=== PATIENT | male | born 1975 | race Caucasian/White ===

== ENCOUNTER 2016-07-08 19:53 | Emergency (ER) | payer SELFPAY ==
[2016-07-08] MEDS ORDERED: HYDROCODONE/ACETAMINOPHEN 5-325 MG TABLET PO ONE (21:42)
[2016-07-08] MEDS ORDERED: PREDNISONE 20 MG TABLET PO ONE (21:42)
--- NOTE | 2016-07-08 21:58 | ER Document Report ---
ED General - General Chief Complaint: Low Back Pain Stated Complaint: LEFT LEG/BACK PAIN Mode of Arrival: Ambulatory Information source: Patient TRAVEL OUTSIDE OF THE [place] IN LAST 30 DAYS: No - HPI Patient complains to provider of: left leg pain Notes: Patient arrives with complaints of left leg pain. Patient has a history of sciatica and states that this feels exactly like sciatica he's had in the past. States that for the last 2 weeks the pain has gotten worse. It is worse with movement or walking. He occasionally feels like he has muscle spasms in this area as well. He denies any traumatic injury. He denies blood thinners. He denies fevers. He denies IV drug use. He denies nausea, vomiting, diarrhea. Abdominal pain. No dysuria hematuria. No rash. No chest pain or shortness of breath. States this feels like prior episodes of sciatica is had in the past. He denies any bowel or bladder dysfunction at this time. States that he's been trying meloxicam for last 2 weeks and it does not seem to be improving. He states that he does not want any pain medication he would like some steroids to help decrease inflammation. - Related Data Allergies/Adverse Reactions: No Known Allergies Allergy (Unverified 03/24/14 16:33) Past Medical History - Social History Smoking Status: Unknown if Ever Smoked Family History: Reviewed & Not Pertinent Patient has suicidal ideation: No Patient has homicidal ideation: No Renal/ Medical History: Denies: Hx Peritoneal Dialysis Review of Systems - Review of Systems -: Yes All other systems reviewed and negative Physical Exam - Vital signs Vitals: Temp Pulse Resp BP Pulse Ox 97.8 F 88 18 132/90 H 98 07/08/16 20:56 07/08/16 20:56 07/08/16 20:56 07/08/16 20:56 07/08/16 20:56 - Notes Notes: GENERAL: alert, cooperative, nontoxic, no distress. HEAD: normocephalic, atraumatic EYES: conjunctiva pink without discharge, no external redness or swelling. EARS: no external swelling, no external redness NOSE: atraumatic, no external swelling MOUTH/THROAT: mucous membranes moist and pink, posterior pharynx without erythema, swelling, exudate. No trismus or drooling. NECK: soft, supple, full range of motion, no meningismus. CHEST: no distress, lungs clear and equal throughout. No wheezing, rales, rhonchi. CARDIAC: regular rate and rhythm, no murmur, normal capillary refill, normal pulses. No peripheral edema noted. ABDOMEN: soft, nontender, no pusatile mass. BACK: No tenderness to palpation to the back. He does have some mild tenderness to the left sciatic notch. Positive straight leg raise on the left. EXTREMITIES: full range of motion of all extremities. No redness, no swelling. NEURO: alert and oriented 3, no focal deficits, full range of motion of all extremities. 5 out of 5 flexion and extension of the lower extremities bilaterally. Patellar and Achilles deep tendon reflexes are +2 bilaterally. Normal sensation with no saddle anesthesia. PYSCH: appropriate mood, affect. Patient is cooperative. SKIN: pink, warm, dry, no rash. Course - Re-evaluation Re-evalutation: 07/08/16 21:55 Patient is nontoxic and was stable vitals. The patient arrives with complaints of left leg pain that he believes is due to sciatica. He's had sciatica in the past and states this feels exactly like it. No trauma. He has no sign or risk of cauda equina or epidural abscess or bleed. Patient states he does not want any pain medicine "home with. He was given a dose of [place] and steroids here in the emergency department. He will be discharged home with prednisone. Follow up with his doctor if not better in one week, sooner for increased pain, fever, numbness, tingling, weakness, bowel or bladder dysfunction, or any further concerns. The patient is noted to have elevated blood pressure during today's emergency department visit. The patient was informed of this finding. The patient was instructed that this may be related to pre-hypertension and requires further evaluation with a primary care provider. The patient has no hypertensive symptoms at this time. The patient's emergency department workup and current diagnosis were explained to the patient and or family. Follow-up instructions were provided. Medications if prescribed were discussed. Instructions for when to return to the emergency department including specific worrisome symptoms were discussed with the patient and/or family. - Vital Signs Vital signs: Temp Pulse Resp BP Pulse Ox 97.8 F 88 18 132/90 H 98 07/08/16 20:56 07/08/16 20:56 07/08/16 20:56 07/08/16 20:56 07/08/16 20:56 Discharge - Discharge Clinical Impression: Sciatica Qualifiers: Laterality: left Qualified Code(s): M54.32 - Sciatica, left side Condition: Stable Disposition: HOME, SELF-CARE Instructions: Sciatica ([facility]) Additional Instructions: Take medications as prescribed. Follow-up with your doctor if not better in one week, sooner for increased pain, fever, numbness, tingling, weakness, difficulty controlling her bowels or bladder, or any further concerns. Your blood pressure was elevated during today's visit. Have this rechecked with your doctor. Prescriptions: Prednisone 60 mg PO DAILY #15 tablet Forms: Elevated Blood Pressure
[2016-07-09 09:26] VITALS: BP 131/90
== END 2016-07-08 22:05 | disposition home or self-care (01) ==
LOC: ER 19:53
DX: M54.32 Sciatica, left side (principal); M62.838 Other muscle spasm; R03.0 Elevated blood-pressure reading, without diagnosis of hypertension; Z79.1 Long term (current) use of non-steroidal anti-inflammatories (NSAID)
CPT/HCPCS: 99283; J7512

== ENCOUNTER 2017-05-22 05:13 | Observation (INO) | payer MEDICAID ==
[2017-05-22] MEDS ORDERED: ASPIRIN 81 MG TABLET, CHEWABLE PO ONE (05:16)
--- NOTE | 2017-05-22 05:33 | ER Document Report ---
ED Medical Screen (RME) - General Chief Complaint: Palpitations Stated Complaint: CHEST PAIN Time Seen by Provider: 05/22/17 05:27 Mode of Arrival: Ambulatory Information source: Patient Notes: 42-year-old male history A. fib who is just discharged from [facility] on metoprolol for A. fib presents with complaints of heart racing. Patient denies any fevers or chills notes he was discharged on metoprolol Patient believes his heart is racing at this time however noted to be in A. fib rate under 100 I have greeted and performed a rapid initial assessment of this patient. A comprehensive ED assessment and evaluation of the patient, analysis of test results and completion of the medical decision making process will be conducted by additional ED providers. PHYSICAL EXAMINATION: GENERAL: Well-appearing, well-nourished and in no acute distress. HEAD: Atraumatic, normocephalic. EYES: Pupils equal round extraocular movements intact, conjunctiva are normal. ENT: Nares patent NECK: Normal range of motion LUNGS: No respiratory distress Musculoskeletal: Normal range of motion NEUROLOGICAL: Normal speech, normal gait. PSYCH: Normal mood, normal affect. SKIN: Warm, Dry, normal turgor, no rashes or lesions noted. TRAVEL OUTSIDE OF THE [place] IN LAST 30 DAYS: No - Related Data Allergies/Adverse Reactions: No Known Allergies Allergy (Unverified 03/24/14 16:33) Past Medical History - Social History Frequency of alcohol use: None Drug Abuse: None Renal/ Medical History: Denies: Hx Peritoneal Dialysis Musculoskeltal Medical History: Reports Hx Arthritis Past Surgical History: Reports: Hx Orthopedic Surgery - Immunizations Hx Diphtheria, Pertussis, Tetanus Vaccination: Yes Physical Exam - Vital signs Vitals: Temp Pulse Resp BP Pulse Ox 97.4 F 90 16 146/106 H 99 05/22/17 05:17 05/22/17 05:17 05/22/17 05:17 05/22/17 05:17 05/22/17 05:17 Course - Vital Signs Vital signs: Temp Pulse Resp BP Pulse Ox 97.4 F 90 16 146/106 H 99 05/22/17 05:17 05/22/17 05:17 05/22/17 05:17 05/22/17 05:17 05/22/17 05:17
[2017-05-22] MEDS ORDERED: NORMAL SALINE 1000 ML 1,000 ML IV ONE ×3 (05:45→09:27)
[2017-05-22 05:49] LABS: ABSOLUTE BASOPHILS # (AUTO) 0.1 10^3/uL (0.0-0.2); ABSOLUTE EOSINOPHILS # (AUTO) 0.1 10^3/uL (0.0-0.6); ABSOLUTE LYMPHOCYTES (AUTO) 2.9 10^3/uL (0.5-4.7); ABSOLUTE MONOCYTES (AUTO) 0.8 10^3/uL (0.1-1.4); ABSOLUTE NEUT (AUTO) 5.1 10^3/uL (1.7-8.2); BASOPHILS % (AUTO) 0.7 % (0-2); EOSINOPHILS % (AUTO) 0.9 % (0-6); HEMATOCRIT 49.7 % (37.9-51.0); HEMOGLOBIN 16.8 g/dL (13.5-17.0); LYMPHOCYTES % (AUTO) 32.4 % (13-45); MEAN CORPUSCULAR HEMOGLOBIN 27.7 pg (27.0-33.4); MEAN CORPUSCULAR HGB CONC 33.7 g/dL (32.0-36.0); MEAN CORPUSCULAR VOLUME 82 fl (80-97); MONOCYTES % (AUTO) 9.2 % (3-13); PLATELET COUNT 216 10^3/uL (150-450); RED BLOOD COUNT 6.04 10^6/uL (4.35-5.55); RED CELL DISTRIBUTION WIDTH 13.6 % (11.5-14.0); SEGMENTED NEUTROPHILS % (AUTO) 56.8 % (42-78); TOTAL CELLS COUNTED % (AUTO) 100 %; WHITE BLOOD COUNT 8.9 10^3/uL (4.0-10.5)
--- NOTE | 2017-05-22 05:50 | RADIOLOGY REPORT (SQ) ---
EXAM DESCRIPTION: CHEST SINGLE VIEW CLINICAL HISTORY: chest pain COMPARISON: None. FINDINGS: Single frontal view of the chest. The cardiomediastinal silhouette has normal size and contour. No consolidation, pneumothorax, or pleural effusion. No displaced rib fractures identified. Upper abdominal soft tissues are unremarkable. Leads overlie the chest. IMPRESSION: 1. No acute pulmonary process identified.
--- NOTE | 2017-05-22 06:14 | ER Document Report ---
ED Cardiac - General Chief Complaint: Palpitations Stated Complaint: CHEST PAIN Time Seen by Provider: 05/22/17 05:27 Mode of Arrival: Ambulatory Notes: The patient is a 42-year-old male, past medical history A. fib, presents with feeling like his heart is racing. He was seen at [facility] yesterday for A. fib with RVR and was sent home. He was placed on metoprolol 50 mg twice daily and a baby aspirin about a month ago for new onset A. fib. His Viscera Washer is Dr. Jairo Strickland at [facility]. Patient says that when he walks, he begins to have increasing shortness of breath, near syncope and feels his heart racing. This resolves when he is at rest. He denies chest pain, shortness of breath, nausea, vomiting, syncope, fevers, back pain, abdominal pain or leg swelling. TRAVEL OUTSIDE OF THE [place] IN LAST 30 DAYS: No - Related Data Allergies/Adverse Reactions: No Known Allergies Allergy (Unverified 03/24/14 16:33) Past Medical History - General Information source: Patient - Social History Smoking Status: Current Every Day Smoker Frequency of alcohol use: None Drug Abuse: None Family History: Reviewed & Not Pertinent Patient has suicidal ideation: No Patient has homicidal ideation: No - Past Medical History Cardiac Medical History: Reports: Hx Atrial Fibrillation Renal/ Medical History: Denies: Hx Peritoneal Dialysis Musculoskeltal Medical History: Reports Hx Arthritis Past Surgical History: Reports: Hx Orthopedic Surgery - Immunizations Hx Diphtheria, Pertussis, Tetanus Vaccination: Yes Review of Systems - Review of Systems Notes: REVIEW OF SYSTEMS: CONSTITUTIONAL: -fevers, -chills EENT: -eye pain, -difficulty swallowing, -nasal congestion CARDIOVASCULAR: -chest pain, -syncope, +palpitations RESPIRATORY: -cough, -SOB GASTROINTESTINAL: -abdominal pain, -nausea, -vomiting, -diarrhea GENITOURINARY: -dysuria, -hematuria MUSCULOSKELETAL: -back pain, -neck pain SKIN: -rash or skin lesions. HEMATOLOGIC: -easy bruising or bleeding. LYMPHATIC: -swollen, enlarged glands. NEUROLOGICAL: -altered mental status or loss of consciousness, -headache, - neurologic symptoms PSYCHIATRIC: -anxiety, -depression. ALL OTHER SYSTEMS REVIEWED AND NEGATIVE. Physical Exam - Vital signs Vitals: Temp Pulse Resp BP Pulse Ox 97.4 F 90 16 146/106 H 99 05/22/17 05:17 05/22/17 05:17 05/22/17 05:17 05/22/17 05:17 05/22/17 05:17 - Notes Notes: PHYSICAL EXAMINATION: GENERAL: Well-appearing, well-nourished and in no acute distress. HEAD: Atraumatic, normocephalic. EYES: Pupils equal round and reactive to light, extraocular movements intact, sclera anicteric, conjunctiva are normal. ENT: nares patent, oropharynx clear without exudates. Moist mucous membranes. NECK: Normal range of motion, supple without lymphadenopathy LUNGS: Breath sounds clear to auscultation bilaterally and equal. No wheezes rales or rhonchi. HEART: Irregular rhythm, rate-controlled ABDOMEN: Soft, nontender, normoactive bowel sounds. No guarding, no rebound. No masses appreciated. EXTREMITIES: Normal range of motion, no pitting or edema. No cyanosis. NEUROLOGICAL: Cranial nerves grossly intact. Normal speech, normal gait. Normal sensory and motor exams. PSYCH: Normal mood, normal affect. SKIN: Warm, Dry, normal turgor, no rashes or lesions noted. Course - Re-evaluation Re-evalutation: Patient arrives in his known A. fib with HR in low 100's. He was given a dose of IV metoprolol and his heart rate improved to the 80s. When patient was ambulated, his heart rate went back up to the 140s and he began to have his near syncopal episode when he felt short of breath. D-dimer added to assess for PE. 05/22/17 08:15 D-dimer negative. Will low-moderate suspicion for PE, this rules- out a PE. Placed call to his Viscera Washer, Dr. Jairo Simon and awaiting callback to discuss further recommendations. 05/22/17 09:24 Second troponin is negative. After 2L IVF, pt reambulated and his HR increases to 120s A. fib RVR and feels like he is ready to pass out again. His heart rate will get back down to the 80s after he sits down. Spoke to Dr. Burton (environmental adviser) and he suggested additional fluids and he will consult on patient. Patient requires admission for further evaluation treatment due to the near syncopal episodes and A. fib RVR symptoms with any exertion. His PCP is Noelle Yip NP. 05/22/17 09:[address] Kidd (Hospitalist) and will admit patient as Inpatient to [facility] for further evaluation and treatment. 05/22/17 10:13 Spoke to patient's Viscera Washer, Dr. Jairo Simon. He suggests that patient's metoprolol may be increased. - Vital Signs Vital signs: Temp Pulse Resp BP Pulse Ox 97.4 F 90 14 116/95 H 98 05/22/17 05:17 05/22/17 05:17 05/22/17 08:22 05/22/17 08:22 05/22/17 08:22 - Laboratory Result Diagrams: 05/22/17 05:35 05/22/17 05:35 Laboratory results interpreted by me: 05/22/17 05/22/17 05:35 05:35 RBC 6.04 H Chloride 108 H Creatine Kinase 220 H - Diagnostic Test Radiology reviewed: Image reviewed, Reports reviewed Radiology results interpreted by me: CXR: NAD - EKG Interpretation by Me Rate: Normal Rhythm: A.Fib When compared to previous EKG there are: No significant change Discharge - Discharge Clinical Impression: Atrial fibrillation with rapid ventricular response, Near syncope Condition: Stable Disposition: ADMITTED INPATIENT Admitting Provider: Jumanaist Sam Kidd Unit Admitted: Telemetry Additional Instructions: Atrial Fibrillation Atrial fibrillation is an abnormal heart rhythm, caused by irregular electrical circuits in the upper heart chamber. It can be caused by heart valve disease, hardening of the arteries, or metabolic problems such as thyroid disease, or may occur without a clear cause. Atrial fibrillation may occur only occasionally, or may be chronic. Atrial fibrillation often results in a very fast heart rate, with palpitations, lightheadedness, and shortness of breath. Treatment is to slow the abnormally fast rate, and to convert the rhythm back to normal, if possible. Many patients stay in atrial fibrillation for years without symptoms or complications. Your doctor will decide whether you can be converted back to a normal heart rhythm. Contact the doctor or emergency medical system at once if you develop chest pain, shortness of breath, or severe lightheadedness, or if you develop any disturbance of consciousness, problems with speech, or localized weakness. Forms: Elevated Blood Pressure Referrals: NOELLE YIP NP [Primary Care Provider] - Follow up as needed
[2017-05-22 06:16] LABS: ALANINE AMINOTRANSFERASE 32 U/L (21-72); ALBUMIN 4.3 g/dL (3.5-5.0); ALKALINE PHOSPHATASE 64 U/L (38-126); ANION GAP 11 (5-19); ASPARTATE AMINO TRANSFERASE 22 U/L (17-59); BILIRUBIN,DIRECT 0.2 mg/dL (0.0-0.4); BILIRUBIN,TOTAL 0.4 mg/dL (0.2-1.3); BLOOD UREA NITROGEN 11 mg/dL (7-20); CALCIUM 9.6 mg/dL (8.4-10.2); CARBON DIOXIDE 24 mmol/L (22-30); CHLORIDE 108 mmol/L (98-107); CREATINE KINASE 220 U/L (55-170); GLUCOSE 105 mg/dL (75-110); POTASSIUM 4.5 mmol/L (3.6-5.0); SODIUM 143.2 mmol/L (137-145); TOTAL PROTEIN 6.5 g/dL (6.3-8.2)
[2017-05-22 06:23] LABS: CREATINE KINASE MB 1.59 ng/mL (<4.55)
[2017-05-22] MEDS ORDERED: METOPROLOL TARTRATE PF/INJ 5 MG/5 ML SDV IV ONE (06:23)
[2017-05-22 06:32] LABS: TROPONIN I < 0.012 ng/mL
--- NOTE | 2017-05-22 07:05 | EKG REPORT ---
SEVERITY:- ABNORMAL ECG - ATRIAL FIBRILLATION, V-RATE 68-106 LEFT POSTERIOR FASCICULAR BLOCK : Confirmed by: Adonis Rousseau MD 22-May-2017 07:04:36
[2017-05-22] MEDS ORDERED: METOPROLOL TARTRATE 50 MG TABLET PO ONE ×2 (09:56→12:00)
[2017-05-22] MEDS ORDERED: ACETAMINOPHEN 325 MG TABLET PO PRN (11:02)
--- NOTE | 2017-05-22 11:02 | PDOC H&P ---
History of Present Illness Admission Date/PCP: CARLOS ALBERTO VILLARREAL NP Patient complains of: Recurrent atrial fibrillation. History of Present Illness: ENEDINA GRAY is a 42 year old male who has a known history of atrial fibrillation. He states that this is the fourth episode of atrial fibrillation that he has had in 3 years. He is normally followed by a radiologic technology program director in [place] who is part of the [facility] group. Yesterday at 9:30 PM the patient was lying in his bed watching television. He felt that his heart rate became irregular and fast. He went to the emergency department in [place]. He was given intravenous medication and discharged. He was still in atrial fibrillation. Once he went home his heart rate again was fast. He does have a blood pressure machine at home. His blood pressure was 128/88 and his pulse was 134-144. He feels tired. He describes this as feeling that he has muscle fatigue as if he has been working all day. Also, he has some shortness of breath with a pleuritic component to it. Last night he felt nauseated and clammy with hot and cold temperature changes. That has not recurred overnight. Otherwise, his review of systems is negative. The patient was given 5 mg of IV Lopressor in our emergency department and also took 50 mg of Lopressor orally. Past Medical History Cardiac Medical History: Reports: Atrial Fibrillation Neurological Medical History: Reports: Migraine Musculoskeltal Medical History: Reports: Arthritis Past Surgical History Past Surgical History: Reports: Orthopedic Surgery Social History Smoking Status: Current Every Day Smoker Frequency of Alcohol Use: Occasional Hx Recreational Drug Use: No Drugs: None Hx Prescription Drug Abuse: No - Advance Directive Resuscitation Status: Full Code Surrogate healthcare decision maker:: : Sabine Gray. Her phone number is [phone]. Family History Family History: Reviewed & Not Pertinent Parental Family History Reviewed: Yes - Both parents have diabetes Children Family History Reviewed: Yes Sibling(s) Family History Reviewed.: Yes Medication/Allergy Home Medications: Bupropion HCl [Wellbutrin Xl 150 mg 24hr Tablet] 150 mg PO BID 05/22/17 Metoprolol Tartrate [Lopressor 50 mg Tablet] 50 mg PO Q12 05/22/17 Sumatriptan Succinate [Imitrex 50 mg Tablet] 50 mg PO DAILYP PRN 05/22/17 Allergies/Adverse Reactions: No Known Allergies Allergy (Unverified 03/24/14 16:33) Review of Systems Constitutional: ABSENT: as per HPI, anorexia, chills, fatigue, fever(s), headache(s), night sweats, weakness, weight gain, weight loss, other Eyes: ABSENT: as per HPI, visual disturbances, other Ears: ABSENT: as per HPI, hearing changes, other Nose, Mouth, and Throat: ABSENT: as per HPI, headache(s), mouth pain, sore throat, vertigo, other Breasts: ABSENT: as per HPI, other Cardiovascular: PRESENT: as per HPI Respiratory: PRESENT: as per HPI Gastrointestinal: PRESENT: nausea Genitourinary: ABSENT: as per HPI, difficulty urinating, dysuria, hematuria, nocturia, other Musculoskeletal: ABSENT: as per HPI, back pain, deformity, joint swelling, muscle weakness, other Integumentary: ABSENT: as per HPI, diaphoresis, erythema, lesions, pruritus, rash, wounds, other Neurological: ABSENT: as per HPI, abnormal gait, abnormal movements, abnormal speech, confusion, convulsions, dizziness, focal weakness, frequent falls, lack of coordination, memory loss, numbness, paresthesias, restless legs, syncope, tingling, tremor(s), vertigo, weakness, other Psychiatric: ABSENT: as per HPI, anxiety, depression, hallucinations, homidical ideation, suicidal ideation, other Endocrine: ABSENT: as per HPI, cold intolerance, flushing, heat intolerance, menstrual abnormalities, polydipsia, polyphagia, polyuria, other Hematologic/Lymphatic: ABSENT: as per HPI, easy bleeding, easy bruising, lymphadenopathy, other Allergic/Immunologic: ABSENT: as per HPI, seasonal rhinorrhea, other Physical Exam Vital Signs: Temp Pulse Resp BP Pulse Ox 97.4 F 90 15 106/69 99 05/22/17 05:17 05/22/17 05:17 05/22/17 10:00 05/22/17 09:16 05/22/17 10:00 Intake & Output 05/21/17 05/22/17 05/23/17 06:59 06:59 06:59 Weight 114.1 kg Additional comments: The patient appears to be a very healthy middle-aged white male. His cognition and mentation are normal. Cranial nerves II through XII are intact. His facial appearance is unremarkable. His oropharynx demonstrates good hygiene. His neck is supple. He does not have any JVD. Trachea is midline. Patient's lungs are clear to auscultation bilaterally. His cardiac exam demonstrates an irregularly irregular rhythm. He does not, however, have murmurs, gallops or rubs. The abdomen is soft and flat. Bowel sounds are present. He does not have guarding or rebound noted and there are no hernias or masses present. The lower extremities are warm to touch without edema. The skin is warm, dry and intact. The patient does have a slight abrasion on the right forearm. Otherwise, the skin does not demonstrate any acute skin lesions or rashes. Results Laboratory Results: 05/22/17 05:35 05/22/17 05:35 05/22/17 05/22/17 05:35 05:35 WBC 8.9 RBC 6.04 H Hgb 16.8 Hct 49.7 MCV 82 MCH 27.7 MCHC 33.7 RDW 13.6 Plt Count 216 Seg Neutrophils % 56.8 Lymphocytes % 32.4 Monocytes % 9.2 Eosinophils % 0.9 Basophils % 0.7 Absolute Neutrophils 5.1 Absolute Lymphocytes 2.9 Absolute Monocytes 0.8 Absolute Eosinophils 0.1 Absolute Basophils 0.1 Sodium 143.2 Potassium 4.5 Chloride 108 H Carbon Dioxide 24 Anion Gap 11 BUN 11 Creatinine 0.93 Est GFR ( Amer) > 60 Est GFR (Non-Af Amer) > 60 Glucose 105 Calcium 9.6 Total Bilirubin 0.4 AST 22 ALT 32 Alkaline Phosphatase 64 Total Protein 6.5 Albumin 4.3 05/22/17 05/22/17 05/22/17 05:35 05:35 08:37 Creatine Kinase 220 H CK-MB (CK-2) 1.59 Troponin I < 0.012 < 0.012 Impressions: Chest X-Ray 05/22/17 05:16 IMPRESSION: 1. No acute pulmonary process identified. Assessment & Plan - Diagnosis (1) Atrial fibrillation with rapid ventricular response Is this a current diagnosis for this admission?: Yes Plan: Recent will be admitted to [facility] on observation status. I will increase his dose of Lopressor from 50 mg twice daily to 75 mg twice daily. I will order an echocardiogram. I will order thyroid function studies. I will not order a CT angiogram as the d-dimer is negative and the patient does not have any risk factors or clinical signs or symptoms of venous thromboembolic disease. I will also check a lipid panel. Did inform the patient that he should consider long- term anticoagulation. We will continue cardiac rule outs. (2) Hypertension Is this a current diagnosis for this admission?: Yes Plan: As above, I will increase the dose of Lopressor. (3) Elevated creatine kinase Is this a current diagnosis for this admission?: Yes Plan: Possibly from dehydration. (4) Tobacco abuse Is this a current diagnosis for this admission?: Yes Plan: The patient was counseled on smoking cessation. Wellbutrin will be continued. - Time Time Spent: 30 to 50 Minutes - Inpatient Certification Medical Necessity: Failure to Improve With Outpatient Therapy, Need For Continuous Telemetry Monitoring, Risk of Complication if Not Cared For in Hospital
[2017-05-22 11:53] LABS: FREE T4 (FREE THYROXINE) 1.25 ng/dL (0.78-2.19)
[2017-05-22 12:07] LABS: THYROID STIMULATING HORMONE 2.76 uIU/mL (0.47-4.68)
[2017-05-22 12:09] LABS: PROTHROMBIN TIME 12.8 SEC (11.4-15.4)
[2017-05-22 12:10] LABS: PARTIAL THROMBOPLASTIN TIME 32.6 SEC (23.5-35.8)
[2017-05-22] MEDS: 1/2 NORMAL SALINE 1,000 ML IV PRN ×2 (15:15→20:16)
[2017-05-22] MEDS ORDERED: (PENDING PHARMACY ID) (Bupropion Hcl [Wellbutrin Xl 150 Mg 24hr Tablet] 150 MG) PO SCH (18:00)
--- NOTE | 2017-05-22 20:01 | PDOC CONSULTATION ---
Consultation Consult Date: 05/22/17 Attending physician:: NATALIE HOGUE Consult reason:: Atrial fibrillation History of Present Illness Admission Date/PCP: 05/22/17 11:05 CARLOS ALBERTO VILLARREAL NP Patient complains of: Tachycardia and dizziness History of Present Illness: ENEDINA GRAY is a 42 year old male who has a known history of atrial fibrillation. He states that this is the fourth episode of atrial fibrillation that he has had in 3 years. He is normally followed by a independent beauty consultant in [place] who is part of the [facility] group. Yesterday at 9:30 PM the patient was lying in his bed watching television. He felt that his heart rate became irregular and fast. He went to the emergency department in [place]. He was given intravenous medication and discharged. He was still in atrial fibrillation. Once he went home his heart rate again was fast. He does have a blood pressure machine at home. His blood pressure was 128/88 and his pulse was 134-144. He feels tired. He describes this as feeling that he has muscle fatigue as if he has been working all day. Also, he has some shortness of breath with a pleuritic component to it. Last night he felt nauseated and clammy with hot and cold temperature changes. That has not recurred overnight. Otherwise, his review of systems is negative. The patient was given 5 mg of IV Lopressor in our emergency department and also took 50 mg of Lopressor orally. This history was reviewed and confirmed. He gives prior history of cardioversion with conversion to sinus rhythm but apparently did not hold much long. Patient has also been evaluated in [place]. Patient claims having had a stress test about 2 months ago at [place] which he claims was relatively unremarkable. Past Medical History Cardiac Medical History: Reports: Atrial Fibrillation Neurological Medical History: Reports: Migraine Musculoskeltal Medical History: Reports: Arthritis Psychiatric Medical History: Denies: Depression Past Surgical History Past Surgical History: Reports: Orthopedic Surgery Social History Information Source: Patient Smoking Status: Current Every Day Smoker Frequency of Alcohol Use: Occasional Hx Recreational Drug Use: No Drugs: None Hx Prescription Drug Abuse: No - Advance Directive Resuscitation Status: Full Code Family History Family History: Hypertension Parental Family History Reviewed: Yes Children Family History Reviewed: Yes Sibling(s) Family History Reviewed.: Yes Medication/Allergy Home Medications: Bupropion HCl [Wellbutrin Xl 150 mg 24hr Tablet] 150 mg PO BID 05/22/17 Metoprolol Tartrate [Lopressor 50 mg Tablet] 50 mg PO Q12 05/22/17 Sumatriptan Succinate [Imitrex 50 mg Tablet] 50 mg PO DAILYP PRN 05/22/17 Allergies/Adverse Reactions: No Known Allergies Allergy (Unverified 03/24/14 16:33) Review of Systems Review of Systems: Please see history of present illness and past medical history as wall. Constitutional: No fever or chills reported. Head : No recent chronic headaches, recent head injury. Eyes: No recent eye pain, diplopia, redness, discharge, acute visual changes. Ears: No recent chronic ear pain, acute hearing loss, ear discharge. Oral cavity: No recent ulcerations, bleeding, oral cavity discomfort. Neck: No recent acute neck pain reported. Hematologic: No recent easy bruising or bleeding or hematologic malignancy reported. Lymphatic: No recent lymphatic malignancy, chronic lymphadenopathy reported yet Cardiovascular system review: See history of present illness. Respiratory system review: No recent chronic cough, hemoptysis, blood clots in the lungs reported. Mild Shortness of breath on exertion Gastrointestinal system review: Negative for any recent acute or chronic abdominal pain, hematemesis, melena, recent change in bowel habits. Genitourinary system review: No recent acute or chronic hematuria, flank pain, UTI etc. reported. Skin system review: Negative for any recent abnormal bruising, no rash, no pruritus reported. Neurologic: No prior history of strokes, mini strokes, seizure disorder. Psychologic: No history of major psychosis or major depression reported. Musculoskeletal: Minor aches and pains reported. No acute joint swelling reported. Endocrine: No recent polyuria, polydipsia, recent heat or cold intolerance. Physical Exam Vital Signs: Temp Pulse Resp BP Pulse Ox 97.4 F 73 12 104/61 99 05/22/17 05:17 05/22/17 18:46 05/22/17 18:01 05/22/17 17:01 05/22/17 18:01 Exam: GENERAL: well-nourished and in no acute distress. Alert and oriented x3 HEAD: Atraumatic, normocephalic. EYES: Pupils equal round and reactive to light, extraocular movements intact, sclera anicteric, conjunctiva are normal. ENT: TMs normal, nares patent, oropharynx clear without exudates. Moist mucous membranes. No oral ulcerations or bleeding gums noted NECK: supple without lymphadenopathy. Trachea is central. No cervical or axillary lymphadenopathy noted. Carotids are 2+, JVD WNL LUNGS: Respiration seems nonlabored, no significant accessory muscle action noted. Breath sounds clear to auscultation bilaterally and equal noted. No wheezes rales or rhonchi noted. No significant dullness noted on percussion. CHEST: Palpation of the chest wall shows no significant chest wall tenderness. No other significant abnormalities noted. HEART: [place] [employer], No PSH, 1/6 LUIS ARMANDO aortic area, 1/6 johns systolic murmur mitral area, no rubs, no gallops. ABDOMEN: Soft, no significant tenderness appreciated, normoactive bowel sounds. No guarding, no rebound. No rigidity noted . No masses appreciated. EXTREMITIES: Pedal pulses are 1-2+, no calf tenderness noted. No clubbing or cyanosis.trace to 1+ pedal edema noted NEUROLOGICAL: Focused neurological exam showed no significant neurologic deficit. Normal speech, no focal weakness appreciated. PSYCH: Normal mood, normal affect. Judgment and insight within normal limits. SKIN: No significant ecchymosis, skin is noted to be warm. MUSCULOSKELETAL EXAM: No significant acute joint swelling noted. Results Laboratory Results: 05/22/17 05/22/17 11:48 17:21 Troponin I < 0.012 < 0.012 EKG Comments: Atrial fibrillation with controlled ventricular response. No acute ST-T wave changes noted. Impressions: Chest X-Ray 05/22/17 05:16 IMPRESSION: 1. No acute pulmonary process identified. Assessment & Plan - Diagnosis (1) Atrial fibrillation with rapid ventricular response Is this a current diagnosis for this admission?: Yes (2) Hypertension Qualifiers: Hypertension type: essential hypertension Qualified Code(s): I10 - Essential (primary) hypertension Is this a current diagnosis for this admission?: Yes (3) Near syncope Is this a current diagnosis for this admission?: Yes (4) Tobacco abuse Is this a current diagnosis for this admission?: Yes (5) Sleep apnea syndrome Qualifiers: Sleep apnea type: unspecified type Qualified Code(s): G47.30 - Sleep apnea , unspecified Is this a current diagnosis for this admission?: Yes - Notes Notes: Atrial fibrillation with rapid ventricular response: At this point, continue with IV Lopressor as needed. Have placed patient on metoprolol succinate 100 mg p.o. twice daily. This may result in a smoother control of his heart rate being long-acting. Near syncope and dizziness: Most likely related to relative volume depletion and atrial fibrillation with rapid ventricular response. Agree with IV fluids. Attempting better control of heart rate with medication changes. Tobacco abuse: Patient has been advised to quit smoking. Hypertension: Blood pressure goal should be 135/85 or less in this young gentleman. Beta-blockers and HALIE inhibitor/ARB are preferred. Currently blood pressure well controlled. Sleep apnea syndrome: Discussed that proper treatment of sleep apnea may reduce recurrence risk of atrial fibrillation along with other multiple benefits. Patient currently being followed by another physician. - Time Time Spent: 30 to 50 Minutes - CODE STATUS was discussed, patient remains full code. Surrogate decision-maker patient's . Multiple medical problems were addressed. More than 50% of the time spent coordinating care, discussing management plans with involved caregivers. Management plans discussed with involved personnels. Medical decision making was of moderate to high complexity , patient's has multiple comorbidities. Medications reviewed and adjusted accordingly: Yes
[2017-05-22] MEDS: BUPROPION HCL 75 MG TABLET PO SCH ×2 (20:17→23:09)
[2017-05-22] MEDS: METOPROLOL SUCCINATE 50 MG TAB.SR.24H PO SCH (21:26)
[2017-05-22] MEDS ORDERED: METOPROLOL SUCCINATE 25 MG TAB.SR.24H PO SCH (22:00)
[2017-05-22] MEDS ORDERED: METOPROLOL TARTRATE 50 MG TABLET PO SCH (22:00)
[2017-05-22] MEDS ORDERED: METOPROLOL TARTRATE 100 MG TABLET PO SCH (22:00)
[2017-05-23] MEDS: BUPROPION HCL 75 MG TABLET PO SCH ×2 (05:30→11:10)
[2017-05-23] MEDS: 1/2 NORMAL SALINE 1,000 ML IV PRN (05:32)
[2017-05-23 06:50] LABS: CHOLESTEROL 175.29 mg/dL (0-200); TRIGLYCERIDES 164 mg/dL (<150)
[2017-05-23 07:01] LABS: DIRECT LDL 136 mg/dL (<100)
[2017-05-23 07:06] LABS: VLDL CHOLESTEROL 32.8 mg/dL (10-31)
--- NOTE | 2017-05-23 07:30 | EKG REPORT ---
SEVERITY:- ABNORMAL ECG - ATRIAL FIBRILLATION, V-RATE 68-115 INCOMPLETE RIGHT BUNDLE BRANCH BLOCK : Confirmed by: Adonis Rousseau MD 23-May-2017 07:29:28
[2017-05-23] MEDS: METOPROLOL SUCCINATE 50 MG TAB.SR.24H PO SCH (10:28)
--- NOTE | 2017-05-23 12:29 | XCELERA REPORT ---
[address] [address] Transthoracic Echocardiogram Report Name: ENEDINA GRAY Age: 42 yrs Gender: Male : 1975 Patient Status: Inpatient Patient Location: [address] [place] [address] Study Date: 05/23/2017 09:51 AM Height: 75 in Weight: 251 lb BSA: 2.4 m2 Procedure: A complete two-dimensional transthoracic echocardiogram was performed (2D, M-mode, spectral and color flow Doppler). The study was technically adequate with some images being suboptimal in quality. Reason For Study: Afib Ordering Physician: NATALIE HOGUE Performed By: Zenia Valentine Interpretation Summary Left ventricular systolic function is borderline reduced. The Ejection Fraction estimate is 50-55% There is mild concentric left ventricular hypertrophy. The left ventricle is grossly normal size. Wall motion cannot be accurately commented on, but no definite regional wall motion abnormalities noted. LV diastolic function could not be adequately assessed due to atrial fibrilation. The right ventricular systolic function is normal. The left atrium is mildly dilated. The right atrium is normal in size There is a trace amount of mitral regurgitation There is no mitral valve stenosis. No aortic regurgitation is present. There is no aortic valve stenosis There is no tricuspid stenosis. No tricuspid regurgitation. The aortic root is not well visualized. The inferior vena cava was not well visualized Minimal pericardial effusion. MMode/2D Measurements & Calculations RVDd: 3.5 cm LVIDd: 5.1 cmFS: 21.7 % Ao root diam: 4.0 cm IVSd: 1.2 cm LVIDs: 4.0 cmEDV(Teich): 124.6 ml LVPWd: 1.2 cmESV(Teich): 70.1 ml Ao root area: 12.5 cm2 EF(Teich): 43.7 % LA dimension: 3.8 cm LVOT diam: 2.5 cm LVOT area: 4.8 cm2 Doppler Measurements & Calculations MV E max crystal: MV P1/2t max crystal: Ao V2 max: LV V1 max P.0 cm/sec 115.5 cm/sec 103.7 cm/sec 2.7 mmHg MV P1/2t: 51.4 msec Ao max PG: LV V1 max: MVA(P1/2t): 4.3 cm2 4.3 mmHg 81.8 cm/sec MV dec slope: EMILI(V,D): 3.7 cm2 658.0 cm/sec2 PA V2 max: 61.7 cm/sec PA max P.5 mmHg Left Ventricle The left ventricle is grossly normal size. There is mild concentric left ventricular hypertrophy. Left ventricular systolic function is borderline reduced. The Ejection Fraction estimate is 50-55%. LV diastolic function could not be adequately assessed due to atrial fibrilation. Wall motion cannot be accurately commented on, but no definite regional wall motion abnormalities noted. Right Ventricle The right ventricle is grossly normal size. There is normal right ventricular wall thickness. The right ventricular systolic function is normal. Atria The right atrium is normal in size. The left atrium is mildly dilated. Interarterial septum not well visualized and not well dopplered. Cannot comment on ASD/PFO presence. Mitral Valve The mitral valve is grossly normal. There is no mitral valve stenosis. There is a trace amount of mitral regurgitation. Aortic Valve The aortic valve is not well visualized secondary to technical limitations. There is no aortic valve stenosis. No aortic regurgitation is present. Tricuspid Valve The tricuspid valve is not well visualized, but is grossly normal. There is no tricuspid stenosis. No tricuspid regurgitation. Pulmonic Valve The pulmonic valve is not well visualized. Great Vessels The aortic root is not well visualized. The inferior vena cava was not well visualized. Effusions Minimal pericardial effusion. : NATALIE HOGUE > Lanie Burton
[2017-05-23 13:50] VITALS: BP 117/70
--- NOTE | 2017-05-23 15:32 | PDOC DISCHARGE SUMMARY ---
General - Admit/Disc Date/PCP Admission Date/Primary Care Provider: 05/22/17 11:05 CARLOS ALBERTO VILLARREAL NP Discharge Date: 05/23/17 - Discharge Diagnosis (1) Atrial fibrillation with rapid ventricular response Is this a current diagnosis for this admission?: Yes (2) Elevated creatine kinase Is this a current diagnosis for this admission?: Yes (3) Hypertension Is this a current diagnosis for this admission?: Yes (4) Sleep apnea syndrome Is this a current diagnosis for this admission?: Yes (5) Tobacco abuse Is this a current diagnosis for this admission?: Yes - Additional Information Resuscitation Status: Full Code Discharge Diet: Cardiac Discharge Activity: Activity As Tolerated, Balance Activity w/Rest, Other Prescriptions: Metoprolol Succinate [Toprol Xl 50 mg Tab.sr] 100 mg PO Q12 #60 tab.sr.24h Home Medications: Bupropion HCl [Wellbutrin Xl 150 mg 24hr Tablet] 150 mg PO BID 05/22/17 Sumatriptan Succinate [Imitrex 50 mg Tablet] 50 mg PO DAILYP PRN 05/22/17 Acetaminophen [Tylenol 325 mg Tablet] 650 mg PO Q4HP PRN tablet 05/23/17 Metoprolol Succinate [Toprol Xl 50 mg Tab.sr] 100 mg PO Q12 #60 tab.sr.24h 05/23 History of Present Illness History of Present Illness: Per H&P by Dr. De La O: ENEDINA GRAY is a 42 year old male who has a known history of atrial fibrillation. He states that this is the fourth episode of atrial fibrillation that he has had in 3 years. He is normally followed by a saw boss in [place] who is part of the [facility] group. Yesterday at 9:30 PM the patient was lying in his bed watching television. He felt that his heart rate became irregular and fast. He went to the emergency department in [place]. He was given intravenous medication and discharged. He was still in atrial fibrillation. Once he went home his heart rate again was fast. He does have a blood pressure machine at home. His blood pressure was 128/88 and his pulse was 134-144. He feels tired. He describes this as feeling that he has muscle fatigue as if he has been working all day. Also, he has some shortness of breath with a pleuritic component to it. Last night he felt nauseated and clammy with hot and cold temperature changes. That has not recurred overnight. Otherwise, his review of systems is negative. The patient was given 5 mg of IV Lopressor in our emergency department and also took 50 mg of Lopressor orally. Hospital Course Hospital Course: The patient was admitted on 05/22/17 with atrial fibrillation with RVR. He was admitted to the [facility] on continuous cardiac telemetry for observational status. The patient's serial troponins were negative. Thyroid panel is appropriate. Lipid panel demonstrated LDL of 136, HDL 27, triglycerides of 164. I did discuss with the patient a low-fat, high-fiber diet and that statin therapy may be indicated in the near future. At this time, the patient's [place] 10- year risk score is 6%; I advised the patient to discuss statin therapy with his primary care provider or saw boss. Echocardiogram demonstrated a LVEF of 50-55%, mild concentric left ventricular hypertrophy, and trace mitral regurgitation. Cardiology was consulted; they made adjustments to the patient's medications. He was transitioned to metoprolol succinate 100 mg twice daily for long-acting coverage. They did not advised chronic anticoagulation at this time; deferring to the patient's outpatient saw boss for evaluation and discussion of potential cardiac ablation. At time of discharge, the patient is in stable condition. He is discharged home with self-care. He has appointments with his primary care provider and saw boss scheduled for next week. He is provided a prescription for metoprolol succinate 100 mg twice daily and advised to continue a full strength daily aspirin. Physical Exam Vital Signs: Temp Pulse Resp BP Pulse Ox 97.9 F 106 H 18 119/85 94 05/23/17 13:33 05/23/17 13:33 05/23/17 13:33 05/23/17 13:33 05/23/17 13:33 Intake & Output 05/22/17 05/23/17 05/24/17 06:59 06:59 06:59 Intake Total 1519 601 Balance 1519 601 Weight 112 kg General appearance: PRESENT: no acute distress, well-developed, well-nourished, other - Overweight Head exam: PRESENT: atraumatic, normocephalic Eye exam: PRESENT: conjunctiva pink, EOMI, PERRLA. ABSENT: scleral icterus Ear exam: PRESENT: normal external ear exam Mouth exam: PRESENT: moist, tongue midline Neck exam: ABSENT: carotid bruit, JVD, lymphadenopathy, thyromegaly Respiratory exam: PRESENT: clear to auscultation reba, symmetrical, unlabored. ABSENT: rales, rhonchi, wheezes Cardiovascular exam: PRESENT: irregular rhythm, +S1, +S2. ABSENT: diastolic murmur, rubs, systolic murmur, tachycardia Pulses: PRESENT: normal dorsalis pedis pul Vascular exam: PRESENT: normal capillary refill GI/Abdominal exam: PRESENT: normal bowel sounds, soft. ABSENT: distended, guarding, mass, organolmegaly, rebound, tenderness Rectal exam: PRESENT: deferred Extremities exam: PRESENT: full ROM. ABSENT: calf tenderness, clubbing, pedal edema Neurological exam: PRESENT: alert, awake, oriented to person, oriented to place , oriented to time, oriented to situation, CN II-XII grossly intact. ABSENT: motor sensory deficit Psychiatric exam: PRESENT: appropriate affect, normal mood. ABSENT: homicidal ideation, suicidal ideation Skin exam: PRESENT: dry, intact, warm. ABSENT: cyanosis, rash Results Laboratory Results: 05/23/17 06:07 Triglycerides 164 H Cholesterol 175.29 LDL Cholesterol Direct 136 H VLDL Cholesterol 32.8 H HDL Cholesterol 27 L 05/22/17 05/22/17 05/22/17 11:48 17:21 23:17 Troponin I < 0.012 < 0.012 < 0.012 Impressions: Chest X-Ray 05/22/17 05:16 IMPRESSION: 1. No acute pulmonary process identified. Qualifiers - * PATEINT BEING DISCHARGED WITH ANY OF THE FOLLOWING DIAGNOSIS?: No
--- NOTE | 2017-05-24 10:17 | PDOC PROGRESS REPORT ---
Subjective Progress Note for:: 05/23/17 Subjective:: Patient seems to be doing better with significant improvement. Dizziness has improved. Sense of palpitations have improved. Pt is denying any chest arm or neck discomfort. Patient denying any PND, orthopnea. Patient denied any sustained palpitations, dizziness, syncope, near syncope. Patient denying any fever chills. Patient denying any other significant discomfort. Patient is maintaining chronic atrial fibrillation Review of systems: Rest review of systems negative. Medications: Medications have been reviewed. Reason For Visit: ATRIAL FIBRILLATION WITH RAPID VENTICULAR RESPONSE Physical Exam Vital Signs: Temp Pulse Resp BP Pulse Ox 97.9 F 106 H 18 110/88 H 94 05/23/17 07:48 05/23/17 07:48 05/23/17 07:48 05/23/17 07:48 05/23/17 07:48 Intake & Output 05/22/17 05/23/17 05/24/17 06:59 06:59 06:59 Intake Total 1519 Balance 1519 Weight 112 kg Exam: GENERAL: well-nourished and in no acute distress. Alert and oriented x3 HEAD: Atraumatic, normocephalic. EYES: Pupils equal round and reactive to light, extraocular movements intact, sclera anicteric, conjunctiva are normal. ENT: TMs normal, nares patent, oropharynx clear without exudates. Moist mucous membranes. No oral ulcerations or bleeding gums noted NECK: supple without lymphadenopathy. Trachea is central. No cervical or axillary lymphadenopathy noted. Carotids are 2+, JVD WNL LUNGS: Respiration seems nonlabored, no significant accessory muscle action noted. Breath sounds clear to auscultation bilaterally and equal noted. No wheezes rales or rhonchi noted. No significant dullness noted on percussion. CHEST: Palpation of the chest wall shows no significant chest wall tenderness. No other significant abnormalities noted. HEART: [place] [employer], No PSH, 1/6 LUIS ARMANDO aortic area, 1/6 johns systolic murmur mitral area, no rubs, no gallops. ABDOMEN: Soft, no significant tenderness appreciated, normoactive bowel sounds. No guarding, no rebound. No rigidity noted . No masses appreciated. EXTREMITIES: Pedal pulses are 1-2+, no calf tenderness noted. No clubbing or cyanosis.trace pedal edema noted NEUROLOGICAL: Focused neurological exam showed no significant neurologic deficit. Normal speech, no focal weakness appreciated. PSYCH: Normal mood, normal affect. Judgment and insight within normal limits. SKIN: No significant ecchymosis, skin is noted to be warm. MUSCULOSKELETAL EXAM: No significant acute joint swelling noted. Results Laboratory Results: 05/23/17 06:07 Triglycerides 164 H Cholesterol 175.29 LDL Cholesterol Direct 136 H VLDL Cholesterol 32.8 H HDL Cholesterol 27 L 05/22/17 05/22/17 05/22/17 11:48 17:21 23:17 Troponin I < 0.012 < 0.012 < 0.012 EKG Comments: Atrial fibrillation with more controlled ventricular response. Impressions: Chest X-Ray 05/22/17 05:16 IMPRESSION: 1. No acute pulmonary process identified. Assessment & Plan - Diagnosis (1) Atrial fibrillation with rapid ventricular response Is this a current diagnosis for this admission?: Yes (2) Hypertension Qualifiers: Hypertension type: essential hypertension Qualified Code(s): I10 - Essential (primary) hypertension Is this a current diagnosis for this admission?: Yes (3) Near syncope Is this a current diagnosis for this admission?: Yes (4) Tobacco abuse Is this a current diagnosis for this admission?: Yes (5) Sleep apnea syndrome Qualifiers: Sleep apnea type: unspecified type Qualified Code(s): G47.30 - Sleep apnea , unspecified Is this a current diagnosis for this admission?: Yes - Notes Notes: Patient doing much better with longer acting beta-theresa. He has ambulated without any difficulty. Discussed long-term management plans. Discussed that his chads score is 0, patient denies any history of hypertension also on 2D echo no high risk features were noted. Therefore he would need only aspirin. He was informed that should he get ablation or cardioversion then he would need to be pretreated with chronic anticoagulation for 3-4 weeks and subsequently after procedure for another 3-4 weeks. 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 Atrial fibrillation with rapid ventricular response: At this point, continue with IV Lopressor as needed. Continue patient on metoprolol succinate 100 mg p.o. twice daily. This may result in a smoother control of his heart rate being long-acting. Near syncope and dizziness: Most likely related to relative volume depletion and atrial fibrillation with rapid ventricular response. Agree with IV fluids. Attempting better control of heart rate with medication changes. Tobacco abuse: Patient has been advised to quit smoking. Hypertension: Blood pressure goal should be 135/85 or less in this young gentleman. Beta-blockers and HALIE inhibitor/ARB are preferred. Currently blood pressure well controlled. Sleep apnea syndrome: Discussed that proper treatment of sleep apnea may reduce recurrence risk of atrial fibrillation along with other multiple benefits. Patient currently being followed by another physician. - Time Time with patient: Greater than 35 minutes - CODE STATUS was discussed, patient remains full code. Surrogate decision-maker patient's spouse. Multiple medical problems were addressed. More than 50% of the time spent coordinating care, discussing management plans with involved caregivers. Management plans discussed with involved personnels. Medical decision making was of moderate to high complexity, patient's has multiple comorbidities. Medications reviewed and adjusted accordingly: Yes
== END 2017-05-23 14:41 | disposition home or self-care (01) ==
LOC: ER 05:13 → EH 11:05 → INTOOBSV 11:05 → 3W 18:46
PROVIDERS: ADMIT Emergency Medicine; ATTEND Emergency Medicine
DX: I48.91 Unspecified atrial fibrillation (principal); R74.8 Abnormal levels of other serum enzymes; I10 Essential (primary) hypertension; G47.30 Sleep apnea, unspecified; F17.200 Nicotine dependence, unspecified, uncomplicated; R55 Syncope and collapse; R11.0 Nausea; R23.1 Pallor; Z82.49 Family history of ischemic heart disease and other diseases of the circulatory system; Z79.899 Other long term (current) drug therapy
CPT/HCPCS: 93005 ×2; 99285; 96361; 96374; 36415 ×2; 84439; 82553; 82550; 83735; 84443; 85025; 85610; 85730; 80053; 84484; 85379; 80061; 93306; 71045; 93010 ×2; J3490 ×6; J7030

== ENCOUNTER 2017-08-06 04:08 | Emergency (ER) | payer MEDICAID ==
[2017-08-06] MEDS ORDERED: NORMAL SALINE 1000 ML 1,000 ML IV ONE ×2 (06:23→08:38)
[2017-08-06] MEDS ORDERED: ONDANSETRON HCL INJ/PF 4 MG/2 ML SDV IV ONE (06:23)
[2017-08-06] MEDS ORDERED: PROCHLORPERAZINE EDISYLATE INJ 10 MG/2 ML VIAL IV ONE (06:23)
[2017-08-06 06:57] LABS: ABSOLUTE EOSINOPHILS # (AUTO) 0.1 10^3/uL (0.0-0.6); ABSOLUTE MONOCYTES (AUTO) 1.1 10^3/uL (0.1-1.4); ABSOLUTE NEUT (AUTO) 11.3 10^3/uL (1.7-8.2); BASOPHILS % (AUTO) 0.2 % (0-2); EOSINOPHILS % (AUTO) 0.5 % (0-6); HEMATOCRIT 47.1 % (37.9-51.0); HEMOGLOBIN 15.5 g/dL (13.5-17.0); MEAN CORPUSCULAR HEMOGLOBIN 27.8 pg (27.0-33.4); MEAN CORPUSCULAR VOLUME 84 fl (80-97); MONOCYTES % (AUTO) 7.6 % (3-13); PLATELET COUNT 224 10^3/uL (150-450); RED BLOOD COUNT 5.58 10^6/uL (4.35-5.55); RED CELL DISTRIBUTION WIDTH 13.9 % (11.5-14.0); SEGMENTED NEUTROPHILS % (AUTO) 77.7 % (42-78); TOTAL CELLS COUNTED % (AUTO) 100 %; WHITE BLOOD COUNT 14.5 10^3/uL (4.0-10.5)
--- NOTE | 2017-08-06 07:02 | RADIOLOGY REPORT (SQ) ---
EXAM DESCRIPTION: CT HEAD WITHOUT IV CONTRAST CLINICAL HISTORY: 42 years Male, headache on xarelto COMPARISON: None. TECHNIQUE: No contrast. Coronal and sagittal reformat. This exam was performed according to our departmental dose-optimization program, which includes automated exposure control, adjustment of the mA and/or kV according to patient size and/or use of iterative reconstruction technique. FINDINGS: No hemorrhage or infarct. No mass, mass effect, or midline shift. 1.7 cm right maxillary retention cyst mucocele. Brain and extra-axial structures appear otherwise intact. IMPRESSION: No acute findings.
[2017-08-06 07:08] LABS: INTERNATIONAL RATION (INR) 1.09; PROTHROMBIN TIME 14.7 SEC (11.4-15.4)
[2017-08-06 07:09] LABS: PARTIAL THROMBOPLASTIN TIME 35.4 SEC (23.5-35.8)
[2017-08-06 07:18] LABS: ANION GAP 10 (5-19); BLOOD UREA NITROGEN 9 mg/dL (7-20); CALCIUM 9.7 mg/dL (8.4-10.2); CARBON DIOXIDE 30 mmol/L (22-30); CHLORIDE 102 mmol/L (98-107); GLUCOSE 112 mg/dL (75-110); POTASSIUM 4.6 mmol/L (3.6-5.0); SODIUM 142.1 mmol/L (137-145)
[2017-08-06] MEDS ORDERED: METOCLOPRAMIDE HCL INJ/PF 10 MG/2 ML SDV IV ONE (08:42)
[2017-08-06] MEDS ORDERED: DIPHENHYDRAMINE HCL 50 MG/ML VIAL IV ONE (08:42)
--- NOTE | 2017-08-06 09:02 | EKG REPORT ---
SEVERITY:- ABNORMAL ECG - SINUS RHYTHM INCOMPLETE RIGHT BUNDLE BRANCH BLOCK : Confirmed by: Adonis Rousseau MD 06-Aug-2017 09:01:27
--- NOTE | 2017-08-06 09:17 | ER Document Report ---
ED General - General Chief Complaint: Headache >24 hrs old Stated Complaint: VOMITING Time Seen by Provider: 08/06/17 06:11 TRAVEL OUTSIDE OF THE [place] IN LAST 30 DAYS: No - HPI Patient complains to provider of: Headache nausea vomiting Notes: Patient coming in mainly today for the above-stated symptoms headache nausea vomiting dizziness ongoing for approximately 24 hours. Patient states recently had a cardiac ablation on the for underlying A. fib patient states since that time is also been having some shortness of breath. Upon evaluation patient is pale and slightly diaphoretic. Patient denies any chest pain abdominal pain. Patient states he has been taking his Imitrex however with no relief of his headache. His headache is bitemporal denies any trauma patient states it is causing to have some dizziness and vomiting. Patient states headache is similar to his migraines in the past. Denies fevers chills denies any diarrhea. - Related Data Allergies/Adverse Reactions: No Known Allergies Allergy (Verified 08/06/17 06:01) Past Medical History - Social History Smoking Status: Unknown if Ever Smoked Family History: Hypertension Patient has suicidal ideation: No Patient has homicidal ideation: No - Past Medical History Cardiac Medical History: Reports: Hx Atrial Fibrillation - ablation July 2017 Neurological Medical History: Reports: Hx Migraine Renal/ Medical History: Denies: Hx Peritoneal Dialysis Musculoskeltal Medical History: Reports Hx Arthritis Psychiatric Medical History: Denies: Hx Depression Past Surgical History: Reports: Hx Orthopedic Surgery - Immunizations Hx Diphtheria, Pertussis, Tetanus Vaccination: Yes Review of Systems - Review of Systems Constitutional: No symptoms reported EENT: No symptoms reported Cardiovascular: Dyspnea Respiratory: No symptoms reported Gastrointestinal: Nausea, Vomiting Genitourinary: No symptoms reported Male Genitourinary: No symptoms reported Musculoskeletal: No symptoms reported Skin: No symptoms reported Hematologic/Lymphatic: No symptoms reported Neurological/Psychological: No symptoms reported, Headaches -: Yes All other systems reviewed and negative Physical Exam - Vital signs Vitals: Temp Pulse Resp BP Pulse Ox 97.9 F 82 22 H 146/97 H 97 08/06/17 04:17 08/06/17 04:17 08/06/17 04:17 08/06/17 04:17 08/06/17 04:17 Interpretation: Normal - General General appearance: Appears well, Alert - HEENT Head: Normocephalic, Atraumatic Eyes: Normal Conjunctiva: Normal Cornea: Normal Extraocular movements intact: Yes Eyelashes: Normal Pupils: PERRL Pharynx: Normal Neck: Normal - Respiratory Respiratory status: No respiratory distress Chest status: Nontender Breath sounds: Normal Chest palpation: Normal - Cardiovascular Rhythm: Regular Heart sounds: Normal auscultation Murmur: No - Abdominal Inspection: Normal Distension: No distension Bowel sounds: Normal Tenderness: Nontender Organomegaly: No organomegaly - Back Back: Normal, Nontender - Extremities General upper extremity: Normal inspection, Nontender, Normal color, Normal ROM , Normal temperature General lower extremity: Normal inspection, Nontender, Normal color, Normal ROM , Normal temperature, Normal weight bearing. No: Wayne's sign - Neurological Neuro grossly intact: Yes Cognition: Normal Orientation: AAOx4 [place] Coma Scale Eye Opening: Spontaneous [place] Coma Scale Verbal: Oriented [place] Coma Scale Motor: Obeys Commands [place] Coma Scale Total: 15 Speech: Normal Motor strength normal: LUE, RUE, LLE, RLE Sensory: Normal - Psychological Associated symptoms: Normal affect, Normal mood - Skin Skin Temperature: Warm Skin Moisture: Diaphoretic Skin Color: Pale Course - Re-evaluation Re-evalutation: 08/06/17 09:14 Patient presentation with multiple complaints. Headache nausea vomiting dyspnea with recent cardiac ablation. Patient EKG does not show any underlying signs of cardiac ischemia or arrhythmia. Patient's underwent a head CT to rule out acute intracranial bleeding is that he is on Xarelto. This was read as negative. Patient's headache and symptoms did improve with Compazine and Zofran. Patient's remained chest pain-free during his entire visit here his troponin did return positive at 2.2 with does not seem a little bit elevated even in the context of a recent ablation approximately 3 days ago. I did discuss with cardiology at [facility] Dr. Wilkins. Also concern for the elevation and the symptoms of dyspnea. However at this time recommends no further anticoagulation as long the patient states chest pain-free. Just recently notified transport for the patient will be here in approximately 10 minutes. - Vital Signs Vital signs: Temp Pulse Resp BP Pulse Ox 97.2 F 82 14 120/83 95 08/06/17 09:40 08/06/17 04:17 08/06/17 09:39 08/06/17 09:39 08/06/17 09:39 - Laboratory Result Diagrams: 08/06/17 05:55 08/06/17 05:55 Laboratory results interpreted by me: 08/06/17 08/06/17 05:55 05:55 WBC 14.5 H RBC 5.58 H Absolute Neutrophils 11.3 H Glucose 112 H Critical Care Note - Critical Care Note Total time excluding time spent on procedures (mins): 40 Comments: Multiple evaluation patient with elevated troponin Discharge - Discharge Clinical Impression: Elevated troponin, History of prior ablation treatment Migraine headache Qualifiers: Migraine type: unspecified Status migrainosus presence: without status migrainosus Intractability: not intractable Qualified Code(s): G43.909 - Migraine, unspecified, not intractable, without status migrainosus Condition: Good Disposition: [facility] Referrals: JULIOCESAR RAPHAEL NP [Primary Care Provider] - Follow up as needed
[2017-08-06 09:50] VITALS: BP 120/83
--- NOTE | 2017-08-06 10:04 | RADIOLOGY REPORT (SQ) ---
EXAM DESCRIPTION: CHEST SINGLE VIEW COMPLETED DATE/TIME: 08/06/2017 9:45 am REASON FOR STUDY: dyspnea COMPARISON: 05/22/2017 NUMBER OF VIEWS: One view. TECHNIQUE: Single frontal radiographic view of the chest acquired. LIMITATIONS: None. FINDINGS: LUNGS AND PLEURA: No opacities, masses or pneumothorax. Small amount of fluid in the fiss ures. MEDIASTINUM AND HILAR STRUCTURES: No masses. Contour normal. HEART AND VASCULAR STRUCTURES: Heart normal in size. Normal vasculature. BONES: No acute findings. HARDWARE: None in the chest. OTHER: No other significant finding. IMPRESSION: NO SIGNIFICANT RADIOGRAPHIC FINDING IN THE CHEST. TECHNICAL DOCUMENTATION: JOB ID: [id number] Medical [employer]erral [employer]- All Rights Reserved Reading location - IP/workstation name: [email or web address]
== END 2017-08-06 09:56 | disposition short-term general hospital (02) ==
LOC: ER 04:08
DX: G43.909 Migraine, unspecified, not intractable, without status migrainosus (principal); R11.2 Nausea with vomiting, unspecified; R42 Dizziness and giddiness; R06.00 Dyspnea, unspecified; R94.39 Abnormal result of other cardiovascular function study
CPT/HCPCS: 93005; 99291; 96361; 96374; 96375; 36415; 85025; 85610; 85730; 80048; 84484; 71045; 70450; 93010; J1200; J2765; J0780; J2405; J7030